=== PATIENT | female | born 1985 | race Caucasian/White ===

== ENCOUNTER 2016-11-26 17:41 | Emergency (ER) | payer SELFPAY ==
[~2016-11-26] VITALS: Ht 175.3 cm; Wt 71.7 kg
[2016-11-26 17:54] VITALS: TEMP 36.9; Ht 175.3 cm; Wt 71.7 kg
[2016-11-26] MEDS ORDERED: SODIUM CHLORIDE 0.9% 1000ML 1,000 ML IV STA (17:59)
[2016-11-26] MEDS ORDERED: KETOROLAC TROMETHAMINE 30 MG/ML VIAL IV STA (17:59)
[2016-11-26] MEDS ORDERED: PROMETHAZINE HCL INJ 12.5 MG in SODIUM CHLORIDE 0.9% 50ML 50 ML IV STA (17:59)
[2016-11-26] MEDS ORDERED: MoRPHine SULFATE 10 MG/ML CARP/VIAL IV STA (17:59)
--- NOTE | 2016-11-26 18:17 | EMERGENCY ROOM VISIT NOTE ---
History Report prepared by Tayo: Kannan Walden Under the Supervision of: Dr. Eric Cortes M.D. First contact with patient: 17:56 Chief Complaint: ABDOMINAL PAIN Stated Complaint: STOMACH PAIN History of Present Illness The patient is a 31 year old female who presents to the Emergency Room with complaints of constant abdominal "cramping" beginning yesterday. She is currently on her menstrual cycle. She began her period yesterday. The patient has a history of severe abdominal cramping with her period. She states that her cramps occur almost every month. She has followed up with her OBGYN for her pain. The patient states that the source of her pain has never been identified. She states that her pain is generally improved with heat. She denies any urinary symptoms. She denies any chance of . The patient notes that she vomited yesterday. Source of History: patient Onset: Yesterday Position: abdomen Quality: cramping Timing: constant Associated Symptoms: + vomiting, No urinary symptoms Review of Systems See HPI for pertinent positives & negatives. A total of 10 systems reviewed and were otherwise negative. Past Medical & Surgical Medical Problems: (1) No Known Active Medical Problems Family History Patient reports no known family medical history. Social History Smoking Status: Current Every Day Smoker Housing Status: lives alone Occupation Status: employed Current/Historical Medications No Active Prescriptions or Reported Meds Allergies Coded Allergies: Penicillins (Unverified Allergy, Unknown, UNKNOWN, 11/26/16) Physical Exam Vital Signs Date Time Temp Pulse Resp B/P Pulse Ox O2 Delivery O2 Flow Rate FiO2 11/26/16 19:45 53 18 94/57 97 11/26/16 17:54 36.9 84 20 97 Room Air Physical Exam GENERAL: Moderate distress secondary to pain. Lying on stretcher. HEENT: No acute trauma, normocephalic atraumatic, mucous membranes moist, no nasal congestion, no scleral icterus. NECK: No stridor, no adenopathy, no meningismus, trachea is midline. LUNGS: Clear to auscultation bilaterally, no wheeze, no rhonchi, breath sounds equal. HEART: Without murmurs gallops or rubs, regular rate and rhythm. ABDOMEN: Soft, bowel sounds positive, no hernias, no peritonitis. Moderately tender in the lower abdomen and pelvis bilaterally. EXTREMITIES: No cyanosis or edema, full range of motion of all the joints without pain or difficulty, no signs for acute trauma. NEUROLOGIC: Oriented x 3, no acute motor or sensory deficits, no focal weakness. SKIN: No rash, no jaundice, no diaphoresis. Medical Decision & Procedures Laboratory Results Test 11/26/16 18:20 Urine Color DK YELLOW Urine Appearance CLEAR (CLEAR) Urine pH 5.5 (4.5-7.5) Urine Specific [place] 1.035 (1.000-1.030) Urine Protein 1+ (NEG) Urine Glucose (UA) NEG (NEG) Urine Ketones 1+ (NEG) Urine Occult Blood 3+ (NEG) Urine Nitrite NEG (NEG) Urine Bilirubin NEG (NEG) Urine Urobilinogen NEG (NEG) Urine Leukocyte Esterase NEG (NEG) Urine WBC (Auto) 1-5 /hpf (0-5) Urine RBC (Auto) 5-10 /hpf (0-4) Urine Hyaline Casts (Auto) 1-5 /lpf (0-5) Urine Epithelial Cells (Auto) >30 /lpf (0-5) Urine Bacteria (Auto) NEG (NEG) Urine Yeast (Auto) (NONE PRSENT) Urine Test NEG (NEG) Laboratory results reviewed by me. Medications Administered Medications (Trade) Dose Ordered Sig/Jacqueline Route Start Time Stop Time Status Last Admin Dose Admin Morphine Sulfate (MoRPHine SULFATE INJ) 6 mg NOW STAT IV 11/26/16 17:59 11/26/16 18:01 DC 11/26/16 18:43 6 MG Ketorolac Tromethamine 30 mg 30 mg NOW STAT IV 11/26/16 17:59 11/26/16 18:01 DC 11/26/16 18:42 30 MG Promethazine HCl 12.5 mg/Sodium Chloride 50.5 ml @ 204 mls/hr NOW STAT IV 11/26/16 17:59 11/26/16 18:13 DC 11/26/16 18:43 204 MLS/HR Sodium Chloride (Nss 1000ml) 1,000 ml @ 999 mls/hr Q1H1M STAT IV 11/26/16 17:59 11/26/16 18:59 DC 11/26/16 18:43 999 MLS/HR Morphine Sulfate (MoRPHine SULFATE INJ) 4 mg NOW STAT IV 11/26/16 19:25 11/26/16 19:26 DC 11/26/16 19:38 4 MG Oxycodone HCl (Roxicodone Immediate Rel 5MG Home Pack) 1 homepack UD ONCE PO 11/26/16 19:30 11/26/16 19:31 DC 11/26/16 19:38 1 HOMEPACK ED Course 1758: The patient was evaluated in room A4. A complete history and physical exam was performed. 1758: Ordered Sodium Chloride 1000 ml @ 999 mls/hr IV, Promethazine HCl 12.5 mg/ Sodium Chloride 50.5 ml @ 204 mls/hr IV, Toradol Inj 30 mg IV, Morphine Sulfate 6 mg IV. 1924: Ordered Morphine Sulfate 4 mg IV. 1929: Ordered Roxicodone Immediate Rel 5 mg home pack PO. Reevaluated the patient. Discussed results and discharge instructions: she verbalized understanding and agreement. The patient is ready for discharge. Medical Decision The patient is a 31 year old female who presents to the ED with complaints of abdominal/pelvic cramping. Differential diagnoses considered include menstrual cramping, , UTI, painful menstrual cycle, hernia, appendicitis, constipation, and pancreatitis. The patient presents with severe pelvic cramping, she gets this monthly with her menstrual cycles. She has been worked up by OB and GI. The patient was not toxic or febrile. There was no peritonitis. Urinalysis shows contamination, no obvious infection. testing is negative. The patient received IV saline, IV Phenergan, IV Toradol, IV morphine, she feels improved, she is definitely more comfortable. Patient is being discharged with Motrin, Tylenol, a few oxycodone. She was instructed to return here for worsening symptoms and to follow with OB. She appears to be suffering from severe menstrual cramps. [place] Drug Monitoring Program Search Results: patient reviewed within database, no issues identified Impression Primary Impression: Pelvic cramping Additional Impression: Dysfunctional uterine bleeding Scribe Attestation The scribe's documentation has been prepared under my direction and personally reviewed by me in its entirety. I confirm that the note above accurately reflects all work, treatment, procedures, and medical decision making performed by me. 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
[2016-11-26 18:40] LABS: URINE APPEARANCE CLEAR (CLEAR); URINE BILIRUBIN NEG (NEG); URINE COLOR DK YELLOW; URINE EPITHELIAL CELL AUTO >30 /lpf (0-5); URINE NITRITE NEG (NEG); URINE PH 5.5 (4.5-7.5); URINE SPECIFIC GRAVITY 1.035 (1.000-1.030); UROBILINOGEN NEG (NEG)
[2016-11-26 18:55] LABS: MANUAL MICROSCOPIC REQUIRED? NO; REVIEW REQ? YES
[2016-11-26] MEDS ORDERED: MoRPHine SULFATE 4 MG/ML 1 ML CARP\\VIAL IV STA (19:25)
[2016-11-26] MEDS ORDERED: OXYCODONE IR HOME PACK PO ONE (19:30)
[2016-11-26 19:45] VITALS: BP 94/57; PULSE 53; O2SAT 97
== END 2016-11-26 19:44 | disposition home or self-care (01) ==
LOC: C.EDB 17:43 → C.EDA 19:44
DX: N93.8 Other specified abnormal uterine and vaginal bleeding (principal); R10.2 Pelvic and perineal pain; F17.200 Nicotine dependence, unspecified, uncomplicated; Z88.0 Allergy status to penicillin

== ENCOUNTER 2016-12-18 09:20 | Emergency (ER) | payer SELFPAY ==
[~2016-12-18] VITALS: Ht 175.3 cm; Wt 71.5 kg
[2016-12-18 09:28] VITALS: TEMP 36.8; Ht 175.3 cm; Wt 71.5 kg
[2016-12-18] MEDS ORDERED: SODIUM CHLORIDE 0.9% 1000ML 1,000 ML IV STA (09:41)
[2016-12-18] MEDS ORDERED: KETOROLAC TROMETHAMINE 30 MG/ML VIAL IV STA (09:41)
[2016-12-18] MEDS ORDERED: ONDANSETRON INJ 2 MG/ML 2 ML VIAL IV STA (09:41)
[2016-12-18 10:12] LABS: BASO % 0.3 %; BASO ABS # 0.03 K/uL (0-0.2); COMPLETE YES; EOS % 2.1 %; HEMATOCRIT 38.2 % (37-47); IG% 0.2 %; LYMPH % 26.7 %; LYMPH ABS # 2.46 K/uL (1.2-3.4); MEAN CELL VOLUME 98.2 fL (80-100); MEAN CORPUSCULAR HGB CONC 35.6 g/dl (32-36); MEAN PLATELET VOLUME 9.6 fL (7.4-10.4); MONO % 8.8 %; NEUT % 61.9 %; PLATELET COUNT 270 K/uL (130-400); RED BLOOD COUNT 3.89 M/uL (4.2-5.4); WHITE BLOOD COUNT 9.23 K/uL (4.8-10.8)
[2016-12-18 10:33] LABS: BUN/CREATININE RATIO 21.7 (10-20); CREATININE 0.82 mg/dl (0.60-1.20); POTASSIUM 3.6 mmol/L (3.5-5.1)
[2016-12-18 10:35] LABS: URINE APPEARANCE CLEAR (CLEAR); URINE COLOR DK YELLOW; URINE EPITHELIAL CELL AUTO >30 /lpf (0-5); URINE NITRITE NEG (NEG); UROBILINOGEN NEG (NEG); ZZUR CULT IF INDIC CLEAN CATCH NO
[2016-12-18 10:41] LABS: MANUAL MICROSCOPIC REQUIRED? NO; REVIEW REQ? NO; URINE BILIRUBIN NEG (NEG)
[2016-12-18 11:19] LABS: CALCIUM 8.9 mg/dl (8.5-10.1)
[2016-12-18] MEDS ORDERED: NAPR-1169 PO (12:06)
--- NOTE | 2016-12-18 12:06 | EMERGENCY ROOM VISIT NOTE ---
History Report prepared by Tayo: Gómez Carver Under the Supervision of: Dr. Cy Paredes D.O. First contact with patient: 09:41 Chief Complaint: ABDOMINAL PAIN Stated Complaint: SEVERE STOMACH CRAMPS Nursing Triage Summary: triage note; pt reports "i get really sick when i get my period, i have had bad abd cramping since last night." History of Present Illness The patient is a 31 year old female who presents to the Emergency Room with complaints of abdominal cramping starting yesterday. She currently rates a pain intensity of 10/10. She took Tylenol and Midol without relief. She has been applying a heat pad without relief. She states that she has severe cramping with her normal menstrual periods and reports similar symptoms today. Her period started yesterday. She stopped taking control medication and now has irregular periods. The patient denies chest pain, shortness of breath, or any other complaints. Source of History: patient Onset: yesterday Position: abdomen Symptom Intensity: 10/10 Quality: cramping Modifying Factors (Relieving): tylenol (without relief), heat (without relief), other (Midol without relief) Associated Symptoms: No chest pain, No SOB Review of Systems See HPI for pertinent positives & negatives. A total of 10 systems reviewed and were otherwise negative. Past Medical & Surgical Medical Problems: (1) No Known Active Medical Problems Family History Patient reports no known family medical history. Social History Smoking Status: Current Every Day Smoker Marital Status: single Housing Status: lives alone Occupation Status: employed Current/Historical Medications Scheduled PRN Naproxen (Naprosyn), 500 MG PO BID PRN for Pain Allergies Coded Allergies: Penicillins (Unverified Allergy, Unknown, UNKNOWN, 12/18/16) Physical Exam Vital Signs Date Time Temp Pulse Resp B/P (MAP) Pulse Ox O2 Delivery O2 Flow Rate FiO2 12/18/16 12:34 59 16 118/63 99 Room Air 12/18/16 11:11 75 16 95/44 98 Room Air 12/18/16 09:28 36.8 103 22 126/81 96 Room Air Physical Exam CONSTITUTIONAL/VITAL SIGNS: Reviewed / noted above. GENERAL: Non-toxic in appearance. INTEGUMENTARY: Warm, dry, and [place]. HEAD: Normocephalic. EYES: without scleral icterus or trauma. ENT/OROPHARYNX: clear and moist. LYMPHADENOPATHY/NECK: Is supple without lymphadenopathy or meningismus. RESPIRATORY: Lungs clear and equal. CARDIOVASCULAR: Regular rate and rhythm. GI/ABDOMEN: Soft and nontender. No organomegaly or pulsatile mass. No rebound or guarding. Normal bowel sounds. EXTREMITIES: Warm and well perfused. BACK: No CVA tenderness. NEUROLOGICAL: Intact without focal deficits. PSYCHIATRIC: normal affect. MUSCULOSKELETAL: Normally developed with good muscle tone. Medical Decision & Procedures Laboratory Results 12/18/16 09:50 Red Blood Count 3.89, Mean Corpuscular Volume 98.2, Mean Corpuscular Hemoglobin 35.0, Mean Corpuscular Hemoglobin Concent 35.6, Mean Platelet Volume 9.6, Neutrophils (%) (Auto) 61.9, Lymphocytes (%) (Auto) 26.7, Monocytes (%) (Auto) 8.8, Eosinophils (%) (Auto) 2.1, Basophils (%) (Auto) 0.3, Neutrophils # (Auto) 5.72, Lymphocytes # (Auto) 2.46, Monocytes # (Auto) 0.81, Eosinophils # (Auto) 0.19, Basophils # (Auto) 0.03 12/18/16 09:50 Test 12/18/16 09:50 12/18/16 09:55 White Blood Count 9.23 K/uL (4.8-10.8) Red Blood Count 3.89 M/uL (4.2-5.4) Hemoglobin 13.6 g/dL (12.0-16.0) Hematocrit 38.2 % (37-47) Mean Corpuscular Volume 98.2 fL (80-100) Mean Corpuscular Hemoglobin 35.0 pg (25-34) Mean Corpuscular Hemoglobin Concent 35.6 g/dl (32-36) Platelet Count 270 K/uL (130-400) Mean Platelet Volume 9.6 fL (7.4-10.4) Neutrophils (%) (Auto) 61.9 % Lymphocytes (%) (Auto) 26.7 % Monocytes (%) (Auto) 8.8 % Eosinophils (%) (Auto) 2.1 % Basophils (%) (Auto) 0.3 % Neutrophils # (Auto) 5.72 K/uL (1.4-6.5) Lymphocytes # (Auto) 2.46 K/uL (1.2-3.4) Monocytes # (Auto) 0.81 K/uL (0.11-0.59) Eosinophils # (Auto) 0.19 K/uL (0-0.5) Basophils # (Auto) 0.03 K/uL (0-0.2) RDW Standard Deviation 46.5 fL (36.4-46.3) RDW Coefficient of Variation 13.0 % (11.5-14.5) Immature Granulocyte % (Auto) 0.2 % Immature Granulocyte # (Auto) 0.02 K/uL (0.00-0.02) Anion Gap 9.0 mmol/L (3-11) Est Creatinine Clear Calc Drug Dose 103.0 ml/min Estimated GFR () 109.7 Estimated GFR (Non- 94.7 BUN/Creatinine Ratio 21.7 (10-20) Calcium Level 8.9 mg/dl (8.5-10.1) Total Bilirubin 0.7 mg/dl (0.2-1) Direct Bilirubin 0.1 mg/dl (0-0.2) Aspartate Amino Transf (AST/SGOT) 11 U/L (15-37) Alanine Aminotransferase (ALT/SGPT) 13 U/L (12-78) Alkaline Phosphatase 66 U/L (45-117) Total Protein 7.0 gm/dl (6.4-8.2) Albumin 3.9 gm/dl (3.4-5.0) Lipase 86 U/L (73-393) Urine Color DK YELLOW Urine Appearance CLEAR (CLEAR) Urine pH 6.0 (4.5-7.5) Urine Specific [place] 1.030 (1.000-1.030) Urine Protein NEG (NEG) Urine Glucose (UA) NEG (NEG) Urine Ketones TRACE (NEG) Urine Occult Blood 3+ (NEG) Urine Nitrite NEG (NEG) Urine Bilirubin NEG (NEG) Urine Urobilinogen NEG (NEG) Urine Leukocyte Esterase NEG (NEG) Urine WBC (Auto) 1-5 /hpf (0-5) Urine RBC (Auto) >30 /hpf (0-4) Urine Hyaline Casts (Auto) 1-5 /lpf (0-5) Urine Epithelial Cells (Auto) >30 /lpf (0-5) Urine Bacteria (Auto) NEG (NEG) Urine Test NEG (NEG) Laboratory results as stated above per my review. Medications Administered Medications (Trade) Dose Ordered Sig/Jacqueline Route Start Time Stop Time Status Last Admin Dose Admin Sodium Chloride 1,000 ml @ 999 mls/hr Q1H1M STAT IV 12/18/16 09:41 12/18/16 10:41 DC 12/18/16 10:00 999 MLS/HR Ondansetron HCl (Zofran Inj) 4 mg NOW STAT IV 12/18/16 09:41 12/18/16 09:42 DC 12/18/16 10:03 4 MG Ketorolac Tromethamine (Toradol Inj) 30 mg NOW STAT IV 12/18/16 09:41 12/18/16 09:42 DC 12/18/16 10:03 30 MG ED Course 0941: Previous medical records were reviewed. The patient was evaluated in room B02. A complete history and physical examination was performed. Toradol Inj 30 mg IV, Zofran Inj 4 mg IV, Sodium Chloride 1000 ml @ 999 mls/hr IV 1207: On reevaluation, the patient is resting comfortably. I discussed the results and findings with the patient. She verbalized agreement of the treatment plan. She was discharged home. Medical Decision Differential considered: pancreatitis, hepatitis, or acute cholecystitis, AAA, UTI, pyelonephritis, kidney stones, appendicitis, diverticulitis, shingles, bowel obstruction mesenteric ischemia, intussusception,hernia, ovarian torsion, ruptured ovarian cyst,ectopic , . Medication Reconciliation: I attest that I have personally reviewed the patient' s current medication list. Patient was found to have a slightly elevated blood pressure due to circumstances. I do not believe that the patient requires hypertension monitoring. This is a 31-year-old female who presents to the ED with a chief complaint of actual cramps. She denies any other significant symptoms. Denies any vomiting or diarrhea. Vital signs are normal. Physical exam revealed some mild tenderness over the suprapubic area. Urine did not show infection. She is not . Blood work including a CBC, complete metabolic panel and lipase are negative. The patient was treated with IV fluids and IV Toradol. She is felt to be stable for discharge and outpatient follow-up. Impression Primary Impression: Menstrual cramp Scribe Attestation The scribe's documentation has been prepared under my direction and personally reviewed by me in its entirety. I confirm that the note above accurately reflects all work, treatment, procedures, and medical decision making performed by me. Departure Information Dispostion Home / Self-Care Prescriptions Naproxen (Naprosyn) 500 Mg Tab 500 MG PO BID Y for Pain, #30 TAB Prov: Cy Paredes D.O. 12/18/16 Referrals No Doctor, Assigned (PCP) Forms Call Back Authorization, HOME CARE DOCUMENTATION FORM, IMPORTANT VISIT INFORMATION Patient Instructions ED Cramping Menstrual, My [facility] Additional Instructions Follow-up with your doctor for further care and evaluation in 1-2 days. Return to the emergency department for worsening or new symptoms or any concerns. You have been examined and treated today on an emergency basis only. This is not a substitute for, or an effort to provide, complete comprehensive medical care. It is impossible to recognize and treat all injuries or illnesses in a single emergency department visit. It is therefore important that you follow up closely with your doctor. Call as soon as possible for an appointment. Take Naproxen for pain.
[2016-12-18 13:20] VITALS: BP 103/63; PULSE 73; O2SAT 96
== END 2016-12-18 13:22 | disposition home or self-care (01) ==
LOC: C.EDB 09:21
DX: N94.6 Dysmenorrhea, unspecified (principal); F17.210 Nicotine dependence, cigarettes, uncomplicated

== ENCOUNTER 2017-01-15 09:57 | Emergency (ER) | payer SELFPAY ==
[~2017-01-15] VITALS: Ht 175.3 cm; Wt 71.8 kg
[~2017-01-15 09:57] MED LIST: NAPR-1169 PO
[2017-01-15 10:05] VITALS: TEMP 37; Ht 175.3 cm; Wt 71.8 kg
--- NOTE | 2017-01-15 10:29 | EMERGENCY ROOM VISIT NOTE ---
History Report prepared by Tayo: Mando Segundo Under the Supervision of: Dr. Nikita Contreras M.D. First contact with patient: 10:20 Chief Complaint: PELVIC PAIN Stated Complaint: SEVERE STOMACH CRAMPS, OVARIAN TORSION History of Present Illness The patient is a 31 year old female who presents to the Emergency Room with complaints of worsening pelvic pain for the past few days. She currently rates her discomfort as a 10/10 in severity. The patient states that she was at [facility] two days ago, and she was diagnosed with a possible ovarian torsion. She states that she was sent home to follow up with her cowlman, though she could not get an appointment. The patient states that she has been vomiting due to the pain, and she denies any fevers or chills. She states that she has always had severe pain from her menstrual cycle. She denies any history of pelvic diseases, and she has never been before. She is currently on her period. Source of History: patient Onset: a few days ago Position: other (pelvis) Symptom Intensity: 10/10 Timing: worsening Associated Symptoms: + vomiting, No fevers, No chills Review of Systems All systems have been listed, reviewed, and are negative other than those previously mentioned. Please see Additional Medical History Sheet. Past Medical & Surgical Medical Problems: (1) No Known Active Medical Problems Family History Patient reports no known family medical history. Social History Smoking Status: Current Every Day Smoker Marital Status: single Housing Status: lives alone Occupation Status: employed Current/Historical Medications Scheduled PRN Ibuprofen Tab (Motrin), 600 MG PO Q6H PRN for Pain Allergies Coded Allergies: Penicillins (Unverified Allergy, Unknown, UNKNOWN, 01/15/17) Physical Exam Vital Signs Date Time Temp Pulse Resp B/P (MAP) Pulse Ox O2 Delivery O2 Flow Rate FiO2 01/15/17 14:45 55 16 111/72 100 01/15/17 12:56 61 18 110/71 97 Room Air 01/15/17 11:01 60 16 104/59 97 01/15/17 10:05 37.0 91 18 126/86 97 Room Air Physical Exam GENERAL: Patient awake, alert, oriented x 3. Patient follows commands. Patient does not appear toxic. Patient is adequately hydrated and well- nourished. SKIN: No erythema, pallor, cyanosis or rash HEENT: Normal head, pupils equal, reactive to light and accommodation. LUNGS: Clear to auscultation. No wheezes, no rales, no rhonchi. HEART: No murmurs. No gallops. No rubs ABDOMEN: Diffuse tenderness more so in the right upper quadrant. No masses, no rebound, no hepatomegaly or splenomegaly. EXTREMITIES: No signs of trauma or infection. NEUROLOGIC: Cranial nerves II-XII within normal limits. No gross motor sensory function deficits. Medical Decision & Procedures ER Provider Diagnostic Interpretation: Radiology results as stated below per my review and radiologist interpretation: PELVIC COMPLETE NON OB HISTORY:31 yearsFemalesuspect right ovarian torsion COMPARISON: None available TECHNIQUE: Multiple real-time sonographic images of the deep pelvic structures were obtained transabdominally and transvaginally assessing grayscale appearance, color and spectral Doppler flow. FINDINGS: TRANSABDOMINAL: Anteflexed uterus measures 7.6 x 2.9 x 3.8 cm. Endometrial thickness is 0.5 cm. Left ovary measures 2.4 x 3.2 x 1.8 cm. Hypoechoic suggest a follicle in the left ovary is seen, 1.2 cm. Arterial inflow is documented within the left ovary. There is mild amount of free pelvic fluid within the cul-de-sac. TRANSVAGINAL: The left ovary measures 3.7 x 2.2 x 2.4 cm. There is an ill-defined hypoechoic lesion within the left ovary, 1.1 x 1.5 x 1.1 cm without definite internal flow suggesting a hemorrhagic cyst. Arterial inflow is documented within the left ovary. Right ovary measures 2.4 x 3.4 x 1.4 cm. Within the right ovary there is an ovoid hypoechoic lesion without internal vascularity, 1.3 x 1.5 x 0.9 cm suggesting involuting follicle. Endometrium is homogeneous measuring 0.4 cm. No myometrial mass lesion identified. IMPRESSION: 1. No evidence of ovarian torsion. 2. Suggested including follicles of the bilateral ovaries are seen measuring up to 1.5 cm. 3. Trace free pelvic fluid, likely physiologic. The above report was generated using voice recognition software. It may contain grammatical, syntax or spelling errors. Electronically signed by: Nestor Moe M.D. 01/15/2017 12:17 PM Dictated Date/Time: 01/15/2017 12:13 PM Laboratory Results 01/15/17 10:35 Red Blood Count 3.68, Mean Corpuscular Volume 97.6, Mean Corpuscular Hemoglobin 34.2, Mean Corpuscular Hemoglobin Concent 35.1, Mean Platelet Volume 10.4, Neutrophils (%) (Auto) 60.7, Lymphocytes (%) (Auto) 29.7, Monocytes (%) (Auto) 5.8, Eosinophils (%) (Auto) 3.1, Basophils (%) (Auto) 0.4, Neutrophils # (Auto) 4.86, Lymphocytes # (Auto) 2.37, Monocytes # (Auto) 0.46, Eosinophils # (Auto) 0.25, Basophils # (Auto) 0.03 01/15/17 10:35 Test 01/15/17 10:15 01/15/17 10:35 01/15/17 13:45 Urine Test NEG (NEG) White Blood Count 7.99 K/uL (4.8-10.8) Red Blood Count 3.68 M/uL (4.2-5.4) Hemoglobin 12.6 g/dL (12.0-16.0) Hematocrit 35.9 % (37-47) Mean Corpuscular Volume 97.6 fL (80-100) Mean Corpuscular Hemoglobin 34.2 pg (25-34) Mean Corpuscular Hemoglobin Concent 35.1 g/dl (32-36) Platelet Count 268 K/uL (130-400) Mean Platelet Volume 10.4 fL (7.4-10.4) Neutrophils (%) (Auto) 60.7 % Lymphocytes (%) (Auto) 29.7 % Monocytes (%) (Auto) 5.8 % Eosinophils (%) (Auto) 3.1 % Basophils (%) (Auto) 0.4 % Neutrophils # (Auto) 4.86 K/uL (1.4-6.5) Lymphocytes # (Auto) 2.37 K/uL (1.2-3.4) Monocytes # (Auto) 0.46 K/uL (0.11-0.59) Eosinophils # (Auto) 0.25 K/uL (0-0.5) Basophils # (Auto) 0.03 K/uL (0-0.2) RDW Standard Deviation 46.7 fL (36.4-46.3) RDW Coefficient of Variation 13.1 % (11.5-14.5) Immature Granulocyte % (Auto) 0.3 % Immature Granulocyte # (Auto) 0.02 K/uL (0.00-0.02) Anion Gap 7.0 mmol/L (3-11) Est Creatinine Clear Calc Drug Dose 122.4 ml/min Estimated GFR () 133.5 Estimated GFR (Non- 115.2 BUN/Creatinine Ratio 18.3 (10-20) Calcium Level 8.3 mg/dl (8.5-10.1) Total Bilirubin 0.5 mg/dl (0.2-1) Aspartate Amino Transf (AST/SGOT) U/L (15-37) Alanine Aminotransferase (ALT/SGPT) 16 U/L (12-78) Alkaline Phosphatase 59 U/L (45-117) Total Protein 6.5 gm/dl (6.4-8.2) Albumin 3.3 gm/dl (3.4-5.0) Globulin 3.2 gm/dl (2.5-4.0) Albumin/Globulin Ratio 1.0 (0.9-2) Urine Color YELLOW Urine Appearance CLEAR (CLEAR) Urine pH 7.0 (4.5-7.5) Urine Specific [place] 1.006 (1.000-1.030) Urine Protein NEG (NEG) Urine Glucose (UA) NEG (NEG) Urine Ketones NEG (NEG) Urine Occult Blood 2+ (NEG) Urine Nitrite NEG (NEG) Urine Bilirubin NEG (NEG) Urine Urobilinogen NEG (NEG) Urine Leukocyte Esterase NEG (NEG) Urine WBC (Auto) 0 /hpf (0-5) Urine RBC (Auto) 0-4 /hpf (0-4) Urine Hyaline Casts (Auto) 0 /lpf (0-5) Urine Epithelial Cells (Auto) 20-30 /lpf (0-5) Urine Bacteria (Auto) NEG (NEG) Laboratory results as stated above per my review. Medications Administered Medications (Trade) Dose Ordered Sig/Jacqueline Route Start Time Stop Time Status Last Admin Dose Admin Morphine Sulfate (MoRPHine SULFATE INJ) 6 mg Q1H PRN IV 01/15/17 10:30 01/15/17 15:28 DC 01/15/17 13:29 6 MG Ondansetron HCl (Zofran Inj) 4 mg Q1HWA PRN IV 01/15/17 10:30 01/15/17 15:28 DC 01/15/17 10:52 4 MG Sodium Chloride 1,000 ml @ 1,000 mls/hr Q1H ONCE IV 01/15/17 10:45 01/15/17 11:44 DC 01/15/17 10:52 1,000 MLS/HR ED Course 1020: Past medical records reviewed. The patient was evaluated in room B8. A complete history and physical examination was performed. 1030: Zofran Inj 4mg IV, Morphine Sulfate 6mg IV 1045: Sodium Chloride 1000 ml @ 1000 mls/hr IV 1240: I reevaluated the patient, and I informed her that she needed a urine specimen by catheter 1444: Upon reevaluation, the patient's pain went down to a 4. She notes that she recently had a full pelvic done at [facility]. I discussed today's findings with her. She verbalized agreement of the treatment plan. She was discharged home. Medical Decision Nurses notes reviewed. Medical history sheet reviewed. Differential diagnosis includes but is not limited to: Ovarian torsion, ovarian cyst, , appendicitis, gastroenteritis, and dehydration. Blood pressure Screening: Patient was found to have normal blood pressure on screening and does not require follow up. Medication Reconciliation: I attest that I have personally reviewed the patient' s current medication list. 31-year-old female with right lower quadrant abdominal pain was fully evaluated at [facility] for this problem within the past few days. She now is here with increasing pain. She states that she was told that she has an ovarian torsion. Ultrasound, urinalysis and blood work were repeated. The patient does not have evidence of an ovarian torsion. I do not believe she has appendicitis. She has no vaginal discharge or signs of pelvic inflammatory disease. White count is not elevated. Pain improved while here. I believe the patient has menstrual pain which will be treated with ibuprofen. The patient should follow- up with a cowlman. Impression Primary Impression: Menstrual pain Scribe Attestation The scribe's documentation has been prepared under my direction and personally reviewed by me in its entirety. I confirm that the note above accurately reflects all work, treatment, procedures, and medical decision making performed by me. Departure Information Dispostion Home / Self-Care Prescriptions Ibuprofen Tab (MOTRIN) 600 Mg Tab 600 MG PO Q6H Y for Pain, #20 TAB Prov: Nikita Contreras M.D. 01/15/17 Referrals No Doctor, Assigned (PCP) Forms HOME CARE DOCUMENTATION FORM, IMPORTANT VISIT INFORMATION Patient Instructions ED Cramping Menstrual, My [facility] Additional Instructions 600 mg ibuprofen every 6 hours until pain has resolved. Apply heat to your pelvic area intermittently over the next 2 days. Follow-up with a cowlman within the next 2 weeks.
[2017-01-15] MEDS ORDERED: ONDANSETRON INJ 2 MG/ML 2 ML VIAL IV PRN (10:30)
[2017-01-15] MEDS ORDERED: SODIUM CHLORIDE 0.9% 1000ML 1,000 ML IV ONE (10:45)
[2017-01-15] MEDS: MoRPHine SULFATE 10 MG/ML CARP/VIAL IV PRN ×2 (10:53→13:29)
[2017-01-15 11:14] LABS: ALT/SGPT 16 U/L (12-78); BLOOD UREA NITROGEN 13 mg/dl (7-18); BUN/CREATININE RATIO 18.3 (10-20); CALCIUM 8.3 mg/dl (8.5-10.1); CARBON DIOXIDE 24 mmol/L (21-32); CHLORIDE 109 mmol/L (98-107); CREATININE 0.69 mg/dl (0.60-1.20); GLUCOSE 91 mg/dl (70-99); SODIUM 140 mmol/L (136-145)
[2017-01-15 11:18] LABS: ALKALINE PHOSPHATASE 59 U/L (45-117)
[2017-01-15 11:38] LABS: BASO % 0.4 %; BASO ABS # 0.03 K/uL (0-0.2); COMPLETE YES; EOS % 3.1 %; HEMATOCRIT 35.9 % (37-47); IG% 0.3 %; LYMPH % 29.7 %; LYMPH ABS # 2.37 K/uL (1.2-3.4); MEAN CELL VOLUME 97.6 fL (80-100); MEAN CORPUSCULAR HEMOGLOBIN 34.2 pg (25-34); MEAN CORPUSCULAR HGB CONC 35.1 g/dl (32-36); MEAN PLATELET VOLUME 10.4 fL (7.4-10.4); MONO % 5.8 %; NEUT % 60.7 %; PLATELET COUNT 268 K/uL (130-400); RED BLOOD COUNT 3.68 M/uL (4.2-5.4); WHITE BLOOD COUNT 7.99 K/uL (4.8-10.8)
--- NOTE | 2017-01-15 12:18 | DIAGNOSTIC IMAGING REPORT ---
PELVIC COMPLETE NON OB HISTORY:31 yearsFemalesuspect right ovarian torsion COMPARISON: None available TECHNIQUE: Multiple real-time sonographic images of the deep pelvic structures were obtained transabdominally and transvaginally assessing grayscale appearance, color and spectral Doppler flow. FINDINGS: TRANSABDOMINAL: Anteflexed uterus measures 7.6 x 2.9 x 3.8 cm. Endometrial thickness is 0.5 cm. Left ovary measures 2.4 x 3.2 x 1.8 cm. Hypoechoic suggest a follicle in the left ovary is seen, 1.2 cm. Arterial inflow is documented within the left ovary. There is mild amount of free pelvic fluid within the cul-de-sac. TRANSVAGINAL: The left ovary measures 3.7 x 2.2 x 2.4 cm. There is an ill-defined hypoechoic lesion within the left ovary, 1.1 x 1.5 x 1.1 cm without definite internal flow suggesting a hemorrhagic cyst. Arterial inflow is documented within the left ovary. Right ovary measures 2.4 x 3.4 x 1.4 cm. Within the right ovary there is an ovoid hypoechoic lesion without internal vascularity, 1.3 x 1.5 x 0.9 cm suggesting involuting follicle. Endometrium is homogeneous measuring 0.4 cm. No myometrial mass lesion identified. IMPRESSION: 1. No evidence of ovarian torsion. 2. Suggested including follicles of the bilateral ovaries are seen measuring up to 1.5 cm. 3. Trace free pelvic fluid, likely physiologic. The above report was generated using voice recognition software. It may contain grammatical, syntax or spelling errors. Electronically signed by: Nestor Moe M.D. 01/15/2017 12:17 PM Dictated Date/Time: 01/15/2017 12:13 PM
[2017-01-15 14:20] LABS: URINE APPEARANCE CLEAR (CLEAR); URINE BILIRUBIN NEG (NEG); URINE COLOR YELLOW; URINE EPITHELIAL CELL AUTO 20-30 /lpf (0-5); URINE NITRITE NEG (NEG); URINE SPECIFIC GRAVITY 1.006 (1.000-1.030); UROBILINOGEN NEG (NEG); ZZUR CULT IF INDIC CLEAN CATCH NO
[2017-01-15 14:24] LABS: MANUAL MICROSCOPIC REQUIRED? NO; REVIEW REQ? NO
[2017-01-15 14:45] VITALS: BP 111/72; PULSE 55; O2SAT 100
[2017-01-15] MEDS ORDERED: IBUP-1427 PO (14:52)
== END 2017-01-15 15:07 | disposition home or self-care (01) ==
LOC: C.EDB 09:59
DX: N94.6 Dysmenorrhea, unspecified (principal); F17.210 Nicotine dependence, cigarettes, uncomplicated